=== PATIENT | female | born 1965 | race Caucasian/White ===

== ENCOUNTER 2019-07-10 11:51 | Inpatient (IN) ==
[2019-07-10] MEDS ORDERED: 0.9 % SODIUM CHLORIDE 1,000 ML IV ONE ×2 (12:17→14:23)
[2019-07-10] MEDS ORDERED: ONDANSETRON 4 MG/2 ML VIAL IV ONE (12:17)
--- NOTE | 2019-07-10 12:18 | Emergency Department Note ---
General Adult HPI - General Chief complaint: Recheck/Abnormal Lab/Rx Stated complaint: Elevated kidney functions and wbc's, n/v/d Time Seen by Provider: 07/10/19 12:03 Source: patient Mode of arrival: ambulatory Limitations: no limitations - History of Present Illness HPI Narrative: 53-year-old female patient presents to the emergency department after being referred from minor care clinic with chief complaint of a profuse nausea, vomiting, and excessive stools. During her evaluation in the minor care they did some laboratory studies did show considerable elevated BUN/creatinine 46 and 5.3 respectively. She was noted to have an elevated glucose 128. Her proteins are elevated at 9.7. She's only vomited one time today. She tells her symptoms started roughly 3 days ago. She has a history of Crohn's and currently has an ileostomy bag. She tells me she noted the bag was "filling up more frequently" at the onset of symptoms. At that time she developed the nausea and vomiting. She does have a suspicious past history of kidney problems as a child. She mentions some form of a double drainage system to the right kidney and frequent urinary stones. She has been more chilled. Her mentions that she "passed out" twice today while voiding. She denies any shortness of breath, retrosternal chest pain, palpitations, abdominal pain, or focal weakness. Other than the Crohn's diagnosis she also suffers from hyperlipidemia. She has no other past history. - Related Data Home Medications Medication Instructions Recorded Confirmed rosuvastatin 10 mg tablet 10 mg PO QDAY 07/10/19 07/10/19 vedolizumab 300 mg intravenous 300 mg IV Q8W 07/10/19 07/10/19 solution Previous Rx's Medication Instructions Recorded ondansetron 4 mg disintegrating 4 mg PO Q6H PRN #10 tab 07/10/19 tablet Allergies Allergy/AdvReac Type Severity Reaction Status Date / Time infliximab [From Remicade] Allergy med Verified 07/10/19 11:51 induced lupus Sulfa (Sulfonamide Allergy fever, Verified 07/10/19 11:51 Antibiotics) hives Review of Systems All systems ED: reviewed and negative except as stated. Past Medical History - Social History smoking status: Never smoker Physical Exam Limitations: no limitations General appearance: alert, in no apparent distress Head: atraumatic, normocephalic Eye: Present: normal appearance, PERRL, EOMI. Absent: scleral icterus, conjunctival injection ENT: Present: normal oropharynx, mucous membranes dry Neck: Present: trachea midline. Absent: lymphadenopathy Chest: Present: symmetric chest wall rise Respiratory: Present: normal lung sounds bilaterally. Absent: respiratory distress, wheezes, stridor, accessory muscle use, prolonged expiratory phase Cardiovascular: Present: regular rate, normal rhythm. Absent: systolic murmur, diastolic murmur Abdominal: Present: soft, other (ileostomy bag to the right lower quadrant draining yellow in color stool. No obvious hemorrhage noted.). Absent: distention, tenderness, guarding, rebound, rigidity, organomegaly, mass Extremities: Absent: pedal edema, pretibial edema, calf tenderness Back: Absent: CVA tenderness (R), CVA tenderness (L) Neurological: Present: alert, oriented X3 Psychiatric: Present: normal affect, normal mood Skin: Present: warm, dry Course Course Narrative: Patient was brought into the emergency department and a history and physical exam was performed. A saline lock was established and repeat laboratory studies were drawn including CBC and chem 8 panel looking at her kidney function once again. The patient was given normal saline 1000 mL's as a bolus. She has no history of previous chronic kidney disease so she will continue to get fluids until she produces urine. Patient been up several times she is restroom. Her BUN and creatinine slightly decreased to 43 and 4.8 respectively. Pro- calcitonin was less than 0.10. Lactic acid level 1.6. With her ongoing kidney dysfunction I reached out to the hospitalist (Dr. Garcia) about her need for observation admission and follow-up. At this time she likely will need further fluids and recheck her BUN and creatinine tomorrow morning. He mentioned also checking her kidneys further with some imaging studies. She remained stable throughout her entire time in the emergency department. She is going to be admitted under the hospitalist service. All further treatment decisions will be carried out by the hospitalist. Vital Signs Temperature 97.9 F 07/10/19 11:52 Pulse Rate 98 H 07/10/19 11:52 Respiratory Rate 16 07/10/19 11:52 Blood Pressure 106/72 07/10/19 11:52 Pulse Oximetry (%) 99 07/10/19 11:52 Temperature 97.9 F 07/10/19 11:52 Pulse Rate 71 07/10/19 14:59 Respiratory Rate 16 07/10/19 11:52 Blood Pressure 109/54 07/10/19 14:59 Pulse Oximetry (%) 97 07/10/19 14:59 Medical Decision Making - Lab Data Lab results reviewed: Yes I reviewed the patient's lab results. Result diagrams: 07/10/19 12:30 Lab Results 07/10/19 07/10/19 07/10/19 Range/Units 12:30 12:30 12:31 WBC 15.1 H (4.5-11.0) K/mcL RBC 5.74 H (4.00-5.20) M/mcL Hgb 15.3 H (12.0-15.0) g/dL Hct 46.4 (36.0-48.0) % POC Hct 50.0 H (36.0-48.0) % MCV 80.9 (80.0-100.0) fL MCH 26.7 (26.0-34.0) pg MCHC 33.0 (31.0-36.0) g/dL RDW 14.0 (11.5-14.5) % Plt Count 247 (140-440) K/mcL MPV 8.6 (7.4-10.4) fL Gran % 82.0 H (38.0-78.0) % Lymph % (Auto) 12.4 L (15.5-49.0) % [place] % (Auto) 5.3 (1.0-12.0) % Eos % (Auto) 0.1 (0.0-7.0) % Baso % (Auto) 0.2 (0.0-2.0) % Gran # 12.4 H (1.8-8.0) K/mcL Lymph # (Auto) 1.9 (1.5-4.8) K/mcL [place] # (Auto) 0.8 (0.1-0.9) K/mcL Eos # (Auto) 0 (0.0-0.7) K/mcL Baso # (Auto) 0 (0.0-0.3) K/mcL VBG Lactic Acid 1.6 (0.5-2.0) mmol/L POC Sodium 137 (133-145) mmol/L POC Potassium 4.1 (3.3-5.1) mmol/L POC Chloride 97 (96-108) mmol/L POC Total CO2 30 (22-30) mmol/L POC BUN 55 H (6-20) mg/dl POC Creatinine 5.4 H* (0.6-1.1) mg/dl POC Glucose 121 H (70-105) mg/dL POC WB Ioniz Calcium 1.01 L (1.16-1.32) mmol/L Lipase 34 (7-60) U/L Procalcitonin (<0.10) ng/mL 07/10/19 07/10/19 Range/Units 12:31 14:37 WBC (4.5-11.0) K/mcL RBC (4.00-5.20) M/mcL Hgb (12.0-15.0) g/dL Hct (36.0-48.0) % POC Hct 42.0 (36.0-48.0) % MCV (80.0-100.0) fL MCH (26.0-34.0) pg MCHC (31.0-36.0) g/dL RDW (11.5-14.5) % Plt Count (140-440) K/mcL MPV (7.4-10.4) fL Gran % (38.0-78.0) % Lymph % (Auto) (15.5-49.0) % [place] % (Auto) (1.0-12.0) % Eos % (Auto) (0.0-7.0) % Baso % (Auto) (0.0-2.0) % Gran # (1.8-8.0) K/mcL Lymph # (Auto) (1.5-4.8) K/mcL [place] # (Auto) (0.1-0.9) K/mcL Eos # (Auto) (0.0-0.7) K/mcL Baso # (Auto) (0.0-0.3) K/mcL VBG Lactic Acid (0.5-2.0) mmol/L POC Sodium 138 (133-145) mmol/L POC Potassium 3.9 (3.3-5.1) mmol/L POC Chloride 101 (96-108) mmol/L POC Total CO2 25 (22-30) mmol/L POC BUN 43 H (6-20) mg/dl POC Creatinine 4.8 H (0.6-1.1) mg/dl POC Glucose 92 (70-105) mg/dL POC WB Ioniz Calcium 0.98 L (1.16-1.32) mmol/L Lipase (7-60) U/L Procalcitonin < 0.10 (<0.10) ng/mL Disposition Pt seen by [facility]/PA only: Yes Clinical Impression: Acute kidney injury (nontraumatic), Ileostomy present Nausea & vomiting Qualifiers: Vomiting type: unspecified Vomiting Intractability: non-intractable Qualified Code(s): R11.2 - Nausea with vomiting, unspecified Crohns disease of small intestine Qualifiers: Digestive disease complication type: unspecified complication Qualified Code(s): K50.019 - Crohn's disease of small intestine with unspecified complications Disposition: Xfer As Inpt ([facility]) Condition: Good Instructions: Acute Kidney Injury (GEN), Crohn Disease (ED) Additional Instructions: Patient is being admitted under the care of the hospitalist (Dr. Garcia). All further treatment decisions be carried out by him. Referrals: No,PCP [Primary Care Provider] - Time of Disposition: 15:49
[2019-07-10 12:42] LABS: POC Blood Urea Nitrogen 55 mg/dl (6-20); POC CO2 30 mmol/L (22-30); POC Calcium, Ionized 1.01 mmol/L (1.16-1.32); POC Chloride 97 mmol/L (96-108); POC Creatinine 5.4 mg/dl (0.6-1.1); POC Glucose, Random 121 mg/dL (70-105); POC Potassium 4.1 mmol/L (3.3-5.1); POC Sodium 137 mmol/L (133-145)
[2019-07-10 13:16] LABS: Basophils # (Auto) 0 K/mcL (0.0-0.3); Basophils % (Auto) 0.2 % (0.0-2.0); Eosinophils # (Auto) 0 K/mcL (0.0-0.7); Eosinophils % (Auto) 0.1 % (0.0-7.0); Hematocrit 46.4 % (36.0-48.0); Hemoglobin 15.3 g/dL (12.0-15.0); Lymphocytes # (Auto) 1.9 K/mcL (1.5-4.8); Lymphocytes % (Auto) 12.4 % (15.5-49.0); Mean Cell Volume 80.9 fL (80.0-100.0); Mean Platelet Volume 8.6 fL (7.4-10.4); Monocytes # (Auto) 0.8 K/mcL (0.1-0.9); Monocytes % (Auto) 5.3 % (1.0-12.0); Platelet Count 247 K/mcL (140-440); RBC 5.74 M/mcL (4.00-5.20); WBC 15.1 K/mcL (4.5-11.0)
--- NOTE | 2019-07-10 13:46 | Nephrology Consult Note ---
History of Present Illness - Reason for Consult Patient information: Note initiated : 07/10/19 at 1:41 pm Patient: Martinez Jackson 53 y/o F admitted on for Elevated kidney functions and wbc's, n/v/d. 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 She could not have oral intake for a period of time but this improved yesterday. Her work up is significant for elevated serum creatinine and BUN. She has no history of other kidney disease. No family history of kidney disease. She received IVF in ED and feels better. She recently moved from [place] and has no PCP in this area. Review of Systems Constitutional: anorexia, weakness Nose, mouth and throat: no nasal congestion, no sore throat Cardiovascular: no chest pain, no palpatations Respiratory: no dyspnea, no wheezing Gastrointestinal: diarrhea, nausea, vomiting Genitourinary: no dysuria, no hematuria Musculoskeletal: no back pain, no joint swelling Integumentary: no rash, no wounds Neurological: no confusion, no focal weakness Psychiatric: no anxiety, no panic attacks Endocrine: no cold intolerance, no heat intolerance Hematologic/Lymphatic: no easy bleeding, no easy bruising Allergic/Immunologic: no tongue swelling, no uticaria Past History Past medical history: Crohn's disease s/p bowel resection and ostomy Recurrent nephrolithiasis Hyperlipidemia Past family history: No history of kidney disease Past social history: Recently moved to this area and has no PCP Medications and Allergies Home Medications Medication Instructions Recorded Confirmed Type ondansetron 4 mg disintegrating 4 mg PO Q6H PRN #10 tab 07/10/19 07/10/19 Rx tablet rosuvastatin 10 mg tablet 10 mg PO QDAY 07/10/19 07/10/19 History vedolizumab 300 mg intravenous 300 mg IV Q8W 07/10/19 07/10/19 History solution Allergies Allergy/AdvReac Type Severity Reaction Status Date / Time infliximab [From Remicade] Allergy med Verified 07/10/19 11:51 induced lupus Sulfa (Sulfonamide Allergy fever, Verified 07/10/19 11:51 Antibiotics) hives Exam - Vital Signs Vital signs: Temp Pulse Resp BP Pulse Ox 97.9 F 76 16 101/64 99 07/10/19 11:52 07/10/19 12:46 07/10/19 11:52 07/10/19 12:46 07/10/19 12:46 - General Appearance General appearance: appears started age EENT: mucous membranes moist Neck: supple Respiratory: clear Cardiology: no edema Gastrointestinal: no tenderness Integumentary: no rash, warm and dry Neurologic: no focal deficit, alert and oriented x3 Musculoskeletal: no deformities Psychiatric: mood/affect appropriate, cooperative Results - Lab Results 07/10/19 12:30 Lab Results 07/10/19 07/10/19 07/10/19 Range/Units 12:30 12:30 12:31 WBC 15.1 H (4.5-11.0) K/mcL RBC 5.74 H (4.00-5.20) M/mcL Hgb 15.3 H (12.0-15.0) g/dL Hct 46.4 (36.0-48.0) % POC Hct 50.0 H (36.0-48.0) % MCV 80.9 (80.0-100.0) fL MCH 26.7 (26.0-34.0) pg MCHC 33.0 (31.0-36.0) g/dL RDW 14.0 (11.5-14.5) % Plt Count 247 (140-440) K/mcL MPV 8.6 (7.4-10.4) fL Gran % 82.0 H (38.0-78.0) % Lymph % (Auto) 12.4 L (15.5-49.0) % [place] % (Auto) 5.3 (1.0-12.0) % Eos % (Auto) 0.1 (0.0-7.0) % Baso % (Auto) 0.2 (0.0-2.0) % Gran # 12.4 H (1.8-8.0) K/mcL Lymph # (Auto) 1.9 (1.5-4.8) K/mcL [place] # (Auto) 0.8 (0.1-0.9) K/mcL Eos # (Auto) 0 (0.0-0.7) K/mcL Baso # (Auto) 0 (0.0-0.3) K/mcL VBG Lactic Acid 1.6 (0.5-2.0) mmol/L POC Sodium 137 (133-145) mmol/L POC Potassium 4.1 (3.3-5.1) mmol/L POC Chloride 97 (96-108) mmol/L POC Total CO2 30 (22-30) mmol/L POC BUN 55 H (6-20) mg/dl POC Creatinine 5.4 H* (0.6-1.1) mg/dl POC Glucose 121 H (70-105) mg/dL POC WB Ioniz Calcium 1.01 L (1.16-1.32) mmol/L Lipase 34 (7-60) U/L Procalcitonin (<0.10) ng/mL 07/10/19 Range/Units 12:31 WBC (4.5-11.0) K/mcL RBC (4.00-5.20) M/mcL Hgb (12.0-15.0) g/dL Hct (36.0-48.0) % POC Hct (36.0-48.0) % MCV (80.0-100.0) fL MCH (26.0-34.0) pg MCHC (31.0-36.0) g/dL RDW (11.5-14.5) % Plt Count (140-440) K/mcL MPV (7.4-10.4) fL Gran % (38.0-78.0) % Lymph % (Auto) (15.5-49.0) % [place] % (Auto) (1.0-12.0) % Eos % (Auto) (0.0-7.0) % Baso % (Auto) (0.0-2.0) % Gran # (1.8-8.0) K/mcL Lymph # (Auto) (1.5-4.8) K/mcL [place] # (Auto) (0.1-0.9) K/mcL Eos # (Auto) (0.0-0.7) K/mcL Baso # (Auto) (0.0-0.3) K/mcL VBG Lactic Acid (0.5-2.0) mmol/L POC Sodium (133-145) mmol/L POC Potassium (3.3-5.1) mmol/L POC Chloride (96-108) mmol/L POC Total CO2 (22-30) mmol/L POC BUN (6-20) mg/dl POC Creatinine (0.6-1.1) mg/dl POC Glucose (70-105) mg/dL POC WB Ioniz Calcium (1.16-1.32) mmol/L Lipase (7-60) U/L Procalcitonin < 0.10 (<0.10) ng/mL Assessment and Plan (1) Acute kidney injury Acute kidney injury associated with decreased oral intake and increased ostomy output, likely prerenal but possible ATN. Recommendations: Continue IVF. LR recommended after 2-3 L NS. Admission for IVF if oral intake is inadequate. Follow up chemistry (inpatient or outpatient) to confirm improvement of kidney function. Further work up based on progress. Status: Acute Priority: High
[2019-07-10 14:46] LABS: POC Blood Urea Nitrogen 43 mg/dl (6-20); POC CO2 25 mmol/L (22-30); POC Calcium, Ionized 0.98 mmol/L (1.16-1.32); POC Chloride 101 mmol/L (96-108); POC Creatinine 4.8 mg/dl (0.6-1.1); POC Glucose, Random 92 mg/dL (70-105); POC Potassium 3.9 mmol/L (3.3-5.1); POC Sodium 138 mmol/L (133-145)
--- NOTE | 2019-07-10 15:45 | Internal Med History&Physical ---
Medical - H&P: [facility] Patient information: Note initiated : 07/10/19 at 3:43 pm Service Date, if different from initiated Date: [] Patient: Martinez Jackson a 53 y/o F admitted on for Elevated kidney functions and wbc's, n/v/d. Chief Complaint: [] Chief complaint: Increased ostomy output, weakness History of present illness: Ms. Jackson is a 53 year old F with a known history of Crohn's disease status post bowel resection with ostomy placement 6 years ago at [facility]. Patient moved from [place] recently to [place]. She follows up with Dr. Bar Perez at [facility] gastroenterology. She is currently on vedolizumab every 8 weeks. She has not had a flare since last 6 years. She now presents with increasing ostomy output that started on Monday. Patient denies abdominal bloating/gurgling and discomfort but no pain fever or rash. She denies bloody output. She denies associated fever chills weight loss. She denies changes in medications or sick contacts. Initial work-up in the ER was consistent with acute renal failure with a creatinine of 5.3. Hospitalist and nephrology service was consulted in light of acute renal failure. At the time of evaluation patient is resting comfortably. She denies active distress. She was able to endorse history as above. She denies NSAID intake. She has intermittent hematuria for which she underwent cystoscopy, she denies prior history of renal failure., Review of systems A 10 point review of system was performed and is negative except as above Medical - H&P: PMH Medical history: History of intermittent hematuria Crohn's disease s/p bowel resection and ostomy at [facility] Recurrent nephrolithiasis Hyperlipidemia Past family history: No history of kidney disease Daughter Crohn's disease diagnosed at age 20 Past social history: Recently moved from [place] Retired Medical - H&P: Meds Home Medications Medication Instructions Recorded Confirmed Type ondansetron 4 mg disintegrating 4 mg PO Q6H PRN #10 tab 07/10/19 07/10/19 Rx tablet rosuvastatin 10 mg tablet 10 mg PO HS 07/10/19 07/10/19 History vedolizumab 300 mg intravenous 300 mg IV Q8W 07/10/19 07/10/19 History solution Allergies Allergy/AdvReac Type Severity Reaction Status Date / Time infliximab [From Remicade] Allergy Intermediate med Verified 07/10/19 17:54 induced lupus Sulfa (Sulfonamide Allergy Mild fever, Verified 07/10/19 17:54 Antibiotics) hives Medical - H&P: Exam - Constitutional Vitals: Temp Pulse Resp BP Pulse Ox 97.9 F 71 16 109/54 97 07/10/19 11:52 07/10/19 14:59 07/10/19 11:52 07/10/19 14:59 07/10/19 14:59 General appearance: no acute distress Exam: Alert oriented Nonlabored breathing Head normocephalic Oral cavity dry No ear nose discharge Eye movement symmetrical Neck no lymphadenopathy S1-S2 regular rhythm no murmur Diminished breath sounds bases abdomen soft nontender, hyperactive bowel sounds. Ostomy bag in place Lower extremity no cyanosis clubbing no joint swelling skin no suspicious lesion Psych alert cooperative neuro nonfocal Medical - H&P: Reslt - Labs CBC & Chem 7: 07/10/19 12:30 Labs: Short CBC 07/10/19 Range/Units 12:30 WBC 15.1 H (4.5-11.0) K/mcL Hgb 15.3 H (12.0-15.0) g/dL Hct 46.4 (36.0-48.0) % Plt Count 247 (140-440) K/mcL Medical - H&P: A/P (1) Acute kidney injury Current visit: Yes Status: Acute * Acute renal failure-creatinine over 5. Likely volume depletion. Check renal ultrasound. Nephrology consult. Crystalloids. Inpatient admission. * Volume depletion secondary to increased ostomy output. Check stool studies including C. difficile/stool culture/fecal leukocyte/norovirus antigen. Continue crystalloids * History of Crohn's disease on status post bowel resection/ostomy. Stable. Managed by GI as outpatient * Full code * Prophylaxis heparin Plan * Inpatient telemetry admit * Nephrology consult * Crystalloids * Conservative management * Ostomy care
[2019-07-10] MEDS ORDERED: ONDANSETRON 4 MG/2 ML VIAL IV PRN (16:59)
[2019-07-10] MEDS ORDERED: MAGNESIUM SULFATE 2 GM/50 ML BAG IV PRN (16:59)
[2019-07-10] MEDS ORDERED: ACETAMINOPHEN 1,000 MG/100 ML BOTTLE IV PRN (16:59)
[2019-07-10] MEDS ORDERED: MELATONIN 3 MG TABLET PO PRN (16:59)
[2019-07-10] MEDS ORDERED: ACETAMINOPHEN 325 MG TABLET PO PRN (16:59)
[2019-07-10] MEDS ORDERED: POTASSIUM CHLORIDE 20 MEQ PACKET PO PRN (16:59)
[2019-07-10] MEDS: LACTATED RINGERS 1,000 ML IV SCH ×3 (18:04→23:49)
--- NOTE | 2019-07-10 18:38 | Ultrasound Report ---
CLINICAL INFORMATION: Acute renal failure COMPARISON: None. FINDINGS: Both kidneys are normal and symmetric in size, position, configuration and echotexture: The right is 13.6 x 4 cm and the left is 13 x 4.4 cm. There are no focal renal lesions. No hydronephrosis. The arterial blood flow is normal on color Doppler. Urinary bladder only 10 cc no gross abnormality IMPRESSION: Both kidneys are unremarkable Interpreted and Authenticated by: Owen Rooney 07/10/19
[2019-07-10] MEDS: CYANOCOBALAMIN (VITAMIN B-12) 500 MCG TABLET PO SCH (20:26)
[2019-07-10] MEDS: HEPARIN 5,000 UNIT/ML VIAL SQ SCH (20:34)
[2019-07-10] MEDS ORDERED: ATORVASTATIN 20 MG TABLET PO SCH (21:00)
[2019-07-10] MEDS: 0.9 % SODIUM CHLORIDE 10 ML SYRINGE IV SCH (22:00)
[2019-07-11] MEDS: 0.9 % SODIUM CHLORIDE 10 ML SYRINGE IV SCH ×3 (05:20→20:44)
[2019-07-11] MEDS: LACTATED RINGERS 1,000 ML IV SCH ×5 (05:21→20:43)
[2019-07-11 06:46] LABS: Hematocrit 35.8 % (36.0-48.0); Hemoglobin 11.7 g/dL (12.0-15.0); Mean Cell Volume 82.8 fL (80.0-100.0); Mean Corpuscular HGB Conc 32.7 g/dL (31.0-36.0); Mean Platelet Volume 8.6 fL (7.4-10.4); Platelet Count 191 K/mcL (140-440); RBC 4.32 M/mcL (4.00-5.20); WBC 10.4 K/mcL (4.5-11.0)
[2019-07-11 07:09] LABS: ALT/SGPT 9 U/l (0-40); AST/SGOT 17 U/l (0-37); Albumin 3.4 gm/dL (3.2-5.2); Albumin/Globulin Ratio 1.3 (1.0-2.3); Alkaline Phosphatase 56 U/L (39-117); Bilirubin,Direct < 0.2 mg/dL (0.0-0.3); Bilirubin,Total 0.4 mg/dL (0.0-1.0); Blood Urea Nitrogen 34 mg/dl (6-20); Calcium 8.7 mg/dl (8.6-10.4); Carbon Dioxide 26 mmol/L (22-30); Chloride 105 mmol/L (96-108); Globulin 2.6 gm/dL (2.2-3.7); Glomerular Filtration Rate 31; Glucose 87 mg/dL (70-105); Lactate Dehydrogenase 186 U/L (94-250); Phosphorous 3.9 mg/dL (2.7-4.5); Triglycerides 127 mg/dl (<150); Uric Acid 5.9 mg/dL (2.5-8.0)
[2019-07-11 08:17] LABS: Band Neutrophils % 4 % (0-10); Basophils % (Manual) 1 % (0-2); Eosinophils % (Manual) 2 % (0-7); Hypochromasia FEW (NONE SEEN); Lymphocytes % 21 % (15-49); Monocytes % (Manual) 10 % (1-12); Platelet Estimate NORMAL (NORMAL); RBC Morphology ABNORM (NORMAL); Segmented Neutrophils % 62 % (38-78)
[2019-07-11] MEDS: HEPARIN 5,000 UNIT/ML VIAL SQ SCH ×2 (08:46→20:42)
[2019-07-11] MEDS: CYANOCOBALAMIN (VITAMIN B-12) 500 MCG TABLET PO SCH ×2 (08:46→20:43)
[2019-07-11] MEDS ORDERED: THIAMINE 100 MG TABLET PO SCH (09:00)
[2019-07-11] MEDS ORDERED: FOLIC ACID 1 MG TABLET PO SCH (09:00)
[2019-07-11] MEDS ORDERED: MULTIVIT,THER IRON,CA,FA & MIN 1 TABLET PO SCH (09:00)
[2019-07-11] MEDS ORDERED: ONDANSETRON 4 MG/2 ML VIAL IV PRN (09:14)
[2019-07-11] MEDS ORDERED: MAGNESIUM SULFATE 2 GM/50 ML BAG IV PRN (09:14)
[2019-07-11] MEDS ORDERED: ACETAMINOPHEN 1,000 MG/100 ML BOTTLE IV PRN (09:14)
[2019-07-11] MEDS ORDERED: POTASSIUM CHLORIDE 20 MEQ PACKET PO PRN (09:14)
[2019-07-11] MEDS ORDERED: ACETAMINOPHEN 325 MG TABLET PO PRN (09:14)
--- NOTE | 2019-07-11 13:05 | Internal Med Progress Note ---
Medical - PN: Subj Patient information: Note initiated : 07/11/19 at 1:02 pm Service Date, if different from initiated Date: [] Patient: Martinez Jackson 53 y/o F admitted on 07/10/19 for Elevated kidney functions and wbc's, n/v/d. Chief Complaint: [] Interval history: Ms. Jackson is a 53 year old F with a known history of Crohn's disease status post bowel resection with ostomy placement 6 years ago at [facility]. Patient moved from [place] recently to [place]. She follows up with Dr. Bar Perez at [facility] gastroenterology. She is currently on vedolizumab every 8 weeks. She has not had a flare since last 6 years. She now presents with increasing ostomy output that started on Monday. Patient denies abdominal bloating/gurgling and discomfort but no pain fever or rash. She denies bloody output. She denies associated fever chills weight loss. She denies changes in medications or sick contacts. Initial work-up in the ER was consistent with acute renal failure with a creatinine of 5.3. Hospitalist and nephrology service was consulted in light of acute renal failure. At the time of evaluation patient is resting comfortably. She denies active distress. She was able to endorse history as above. She denies NSAID intake. She has intermittent hematuria for which she underwent cystoscopy, she denies prior history of renal failure., 07/11-patient doing remarkably well. White count down to 10.4 from 15, creatinine down to 1.8 from 5.3, much improved ostomy output. On IV crystalloids. Tolerating diet. Anticipate discharge in 24 hours if continues to improve clinically. [facility] Recommends outpatient infusion as scheduled in the next 24 hours once patient discharged. Continue existing treatment. - Constitutional Vitals: Vital Signs Temp Pulse Resp BP Pulse Ox 98 F 57 L 16 90/65 96 07/11/19 06:00 07/11/19 06:00 07/11/19 06:00 07/11/19 06:00 07/11/19 06:00 Period Temp Pulse Resp BP Sys/Chang Pulse Ox Last 24 Hr 97.1 F-99.4 F 57-73 14-16 89-109/54-77 92-99 Intake and Output 07/10/19 07/11/19 07/11/19 21:59 05:59 13:59 Intake Total 4976 680 1726 Output Total 200 1350 400 Balance 1040 -487 600 Weight 158 lb Intake & Output: Intake & Output 07/10/19 07/11/19 07/11/19 21:59 05:59 13:59 Intake Total 5718 677 3070 Output Total 200 1350 400 Balance 1040 -487 600 Weight 158 lb Intake: IV 0748 650 2975 Sodium Chloride 0.9% 1,000 ml @ 1000 Wide Open IV BOLUS ONE Rx#: [id number] Lactated Ringers 1,000 ml @ 773 722 8802 mls/hr IV .Q6H40M FRANCIA Rx#: [id number] Oral 240 Output: Void Amount 150 1050 400 Stool 50 300 Other: Meal Dinner Percent of Meal Consumed 100% Feeding Ability Independent Urine Appearance Clear Clear Clear Urine Color Pale Bright Yellow Bright Yellow Urine Odor Normal Normal Stool Color Brown Brown Green Stool Consistency Liquid Normal for Patient Watery Liquid General appearance: no acute distress Exam: Alert oriented Nonlabored breathing Nondistended abdomen Ostomy output improving No anxiety Medical - PN: Obj Da - Labs CBC & Chem 7: 07/11/19 03:52 07/11/19 03:52 Labs: Abnormal Lab Results 07/11/19 07/11/19 07/10/19 03:52 03:52 14:37 WBC RBC Hgb 11.7 L Hct 35.8 L POC Hct Gran % Lymph % (Auto) Gran # RBC Morphology Abnorm A Hypochromasia Few A POC BUN 43 H BUN 34 H Creatinine 1.8 H POC Creatinine 4.8 H POC Glucose POC WB Ioniz Calcium 0.98 L 07/10/19 07/10/19 12:30 12:30 WBC 15.1 H RBC 5.74 H Hgb 15.3 H Hct POC Hct 50.0 H Gran % 82.0 H Lymph % (Auto) 12.4 L Gran # 12.4 H RBC Morphology Hypochromasia POC BUN 55 H BUN Creatinine POC Creatinine 5.4 H* POC Glucose 121 H POC WB Ioniz Calcium 1.01 L Meds: Medications Acetaminophen (Tylenol) 650 mg PO Q4-6HP PRN PRN Reason: PAIN/FEVER > 101 Atorvastatin Calcium (Lipitor) 20 mg PO HS FRANCIA Cyanocobalamin (Vitamin B-12) 1,000 mcg PO BID [facility] Stop: 07/15/19 09:01 Folic Acid (Folic Acid) 1 mg PO DAILY [facility] Heparin Sodium (Porcine) (Heparin) 5,000 unit SQ Q12 [facility] Lactated Ringer's (Lactated Ringers) 1,000 mls @ 150 mls/hr IV .Q6H40M [facility] Stop: 07/12/19 02:18 Last Admin: 07/11/19 09:20 Dose: Not Given Documented by: Magnesium Sulfate (Magnesium Sulfate) 2 gm in 50 mls @ 50 mls/hr IV UD PRN PRN Reason: MG = or < 1.7 Acetaminophen (Ofirmev) 1,000 mg in 100 mls @ 200 mls/hr IV Q6HP PRN PRN Reason: PAIN/FEVER > 101 Iron Carb/Multivit/Reydon/Folic Acid (Multivitamin W/Minerals) 1 tab PO DAILY [facility] Melatonin (Melatonin 3mg Tablet) 3 mg PO HSP PRN PRN Reason: Insomnia Ondansetron HCl (Zofran) 4 mg IV Q4-6HP PRN PRN Reason: Nausea And Vomiting Potassium Chloride (Klor-Con) 40 meq PO DAILYP PRN PRN Reason: K+ < 3.5 Sodium Chloride (Saline Flush) 10 ml IV Q8 [facility] Thiamine HCl (Vitamin B1) 100 mg PO DAILY [facility] Medical - PN: A/P - Time Spent With Patient Total time spent is greater than 50% in coordination of care (as documented) at patient's floor/unit and/or counseling patient: 25 - 35 minutes (1) Acute kidney injury Status: Acute Assessment and plan: * Acute renal failure-creatinine creatinine improved from 5.3-1.8. Continue crystalloids and supportive treatment. * Volume depletion secondary to increased ostomy output. Clinical improvement noted with aggressive crystalloids. * Increased ostomy output-negative C. difficile, fecal leuks. Likely acute viral gastritis. Clinically improving with crystalloids. * History of Crohn's disease on status post bowel resection/ostomy. Stable. Managed by GI as outpatient. Patient will undergo regular infusion of vedolizumab in the next 24 hours at [facility] * Full code * Prophylaxis heparin Plan * Continue crystalloids * Monitor renal function * Advance diet as tolerated * Ostomy care * Anticipate discharge in 24 hours Current Visit: Yes Medical - PN: Qual - VTE Deep Vein Thrombosis/Pulmonary Embolism Present on Admission: No
--- NOTE | 2019-07-11 16:58 | Nephrology Progress Note ---
Subjective Patient information: Note initiated : 07/11/19 at 4:56 pm Service Date, if different from initiated Date: [] Patient: Martinez Jackson 53 y/o F admitted on 07/10/19 for Elevated kidney functions and wbc's, n/v/d. Chief Complaint: [] Principal diagnosis: zandra Interval history: Tolerating p.o. both food and fluids. No more nausea. Good urine output. at the bedside present throughout the visit. Pertinent ROS: Nausea and vomiting resolved Ostomy output decreasing Good urine output Objective - Vital Signs Vital signs: Vital Signs Temp Pulse Pulse Resp BP BP Pulse Ox 07/11/19 12:00 36.7 C 68 20 114/71 97 07/11/19 08:00 36.6 C 81 18 101/62 97 07/11/19 06:00 36.6 C 57 L 16 90/65 96 07/11/19 04:20 36.4 C 07/11/19 02:00 57 L 14 93/58 95 07/10/19 23:40 36.2 C 62 14 89/59 92 07/10/19 20:04 37.4 C H 71 16 109/64 92 07/10/19 17:22 37.0 C 71 14 106/72 99 07/10/19 17:11 37.0 C 73 14 102/77 99 Intake and Output 07/11/19 07/11/19 07/11/19 05:59 13:59 21:59 Intake Total 863 2000 Output Total 1350 1300 400 Balance -487 700 -400 Intake: IV 863 2000 Lactated Ringers 1,000 ml @ 351 610 1310 mls/hr IV .Q6H40M ON LICENSE OF [facility] Rx#: [id number] Output: Void Amount 1050 1300 400 Stool 300 Other: Urine Appearance Clear Clear Clear Urine Color Bright Yellow Bright Yellow Bright Yellow Urine Odor Normal Normal Normal Stool Color Brown Brown Green Green Stool Consistency Normal for Patient Liquid Liquid Weight 71.668 kg Patient Weight 07/12/19 05:59 Weight 71.668 kg Intake & Output: Intake & Output 07/11/19 07/11/19 07/11/19 05:59 13:59 21:59 Intake Total 863 2000 Output Total 1350 1300 400 Balance -487 700 -400 Weight 71.668 kg Intake: IV 863 2000 Lactated Ringers 1,000 ml @ 652 895 1061 mls/hr IV .Q6H40M ON LICENSE OF [facility] Rx#: [id number] Output: Void Amount 1050 1300 400 Stool 300 Other: Urine Appearance Clear Clear Clear Urine Color Bright Yellow Bright Yellow Bright Yellow Urine Odor Normal Normal Normal Stool Color Brown Brown Green Green Stool Consistency Normal for Patient Liquid Liquid - General Appearance General appearance: well-developed, well-nourished (Normocephalic atraumatic, nonlabored respirations, clear speech) - Lab 07/11/19 03:52 07/11/19 03:52 Most recent lab results Calcium 8.7 mg/dl (8.6-10.4) 07/11/19 03:52 Phosphorus 3.9 mg/dL (2.7-4.5) 07/11/19 03:52 Magnesium 2.1 mg/dL (1.6-2.5) 07/11/19 03:52 Assessment and Plan (1) ZANDRA (acute kidney injury) Status: Acute - Narrative A/P Narrative: Prerenal etiology in the setting of low p.o. intake and high ostomy output. Improved significantly with IV fluids. The patient can tolerate p.o. both food and fluids. Nausea and vomiting resolved. Counseled on NSAID avoidance, keep well-hydrated. Repeat renal function panel 1 or 2 weeks after discharge if serum creatinine does not return to baseline prior to discharge. We are signing off. Please call with questions or concerns
[2019-07-11] MEDS ORDERED: ATORVASTATIN 20 MG TABLET PO SCH (21:00)
[2019-07-11] MEDS ORDERED: MELATONIN 3 MG TABLET PO PRN (21:00)
[2019-07-12 05:22] LABS: Hematocrit 33.9 % (36.0-48.0); Hemoglobin 11.2 g/dL (12.0-15.0); Mean Cell Volume 82.8 fL (80.0-100.0); Mean Corpuscular HGB Conc 33.1 g/dL (31.0-36.0); Mean Platelet Volume 8.5 fL (7.4-10.4); Platelet Count 170 K/mcL (140-440); Red Cell Distribution Width 13.7 % (11.5-14.5); WBC 7.9 K/mcL (4.5-11.0)
[2019-07-12 05:39] LABS: ALT/SGPT 12 U/l (0-40); AST/SGOT 15 U/l (0-37); Albumin 3.3 gm/dL (3.2-5.2); Albumin/Globulin Ratio 1.3 (1.0-2.3); Alkaline Phosphatase 49 U/L (39-117); Bilirubin,Direct < 0.2 mg/dL (0.0-0.3); Bilirubin,Total 0.3 mg/dL (0.0-1.0); Blood Urea Nitrogen 14 mg/dl (6-20); Calcium 8.7 mg/dl (8.6-10.4); Carbon Dioxide 29 mmol/L (22-30); Chloride 105 mmol/L (96-108); Globulin 2.6 gm/dL (2.2-3.7); Glomerular Filtration Rate 63; Glucose 87 mg/dL (70-105); Lactate Dehydrogenase 157 U/L (94-250); Phosphorous 2.4 mg/dL (2.7-4.5); Triglycerides 111 mg/dl (<150); Uric Acid 3.2 mg/dL (2.5-8.0)
[2019-07-12 06:20] LABS: Lymphocytes % 37 % (15-49); Monocytes % (Manual) 6 % (1-12); Platelet Estimate NORMAL (NORMAL); RBC Morphology NORMAL (NORMAL); Segmented Neutrophils % 57 % (38-78)
[2019-07-12] MEDS: 0.9 % SODIUM CHLORIDE 10 ML SYRINGE IV SCH (07:49)
--- NOTE | 2019-07-12 08:38 | Discharge Summary ---
Medical - DS: Prov Patient information: Note initiated : 07/12/19 at 8:35 am Service Date, if different from initiated Date: [] Patient: Martinez Jackson 53 y/o F admitted on 07/10/19 for Elevated kidney functions and wbc's, n/v/d. Chief Complaint: [] Date of admission: 07/10/19 17:06 Discharge date: 07/12/19 Primary care physician: PCP No Consults: 07/10/19 Consult to Physician [CONS] Stat Comment: Consulting Provider: Robin Rodriguez Reason For Exam: Physician to Consult 07/10/19 13:28 Consult to Physician [CONS] Stat Comment: Consulting Provider: Solitario Pruitt Reason For Exam: Physician to Consult Medical - DS: Meds - Discharge Medications Active and Home Medications: Home Medications ondansetron 4 mg disintegrating tablet 4 mg PO Q6H PRN #10 tab 07/10/19 [Rx Confirmed 07/10/19 Last Taken Unknown] rosuvastatin 10 mg tablet 10 mg PO HS 07/10/19 [History Confirmed 07/10/19 Last Taken Unknown] vedolizumab 300 mg intravenous solution 300 mg IV Q8W 07/10/19 [History Confirmed 07/10/19 Last Taken Unknown] Medical - DS: Hosp Hospital Course: Discharge diagnosis * Acute renal failure-creatinine creatinine improved from 5.3-1.8. Continue crystalloids and supportive treatment. * Volume depletion secondary to increased ostomy output. Clinical improvement noted with aggressive crystalloids. * Increased ostomy output-negative C. difficile, fecal leuks. Likely acute viral gastritis. Clinically improving with crystalloids. * History of Crohn's disease on status post bowel resection/ostomy. Stable. Managed by GI as outpatient. Patient will undergo regular infusion of vedolizumab in the next 24 hours at [facility] Hospital course Ms. Jackson is a 53 year old F with a known history of Crohn's disease status post bowel resection with ostomy placement 6 years ago at [facility]. Patient moved from [place] recently to [place]. She follows up with Dr. Bar Perez at [facility] gastroenterology. She is currently on vedolizumab every 8 weeks. She has not had a flare since last 6 years. She now presents with increasing ostomy output that started on Monday. Patient denies abdominal bloating/gurgling and discomfort but no pain fever or rash. She denies bloody output. She denies associated fever chills weight loss. She denies changes in medications or sick contacts. Initial work-up in the ER was consistent with acute renal failure with a creatinine of 5.3. Hospitalist and nephrology service was consulted in light of acute renal failure. At the time of evaluation patient is resting comfortably. She denies active distress. She was able to endorse history as above. She denies NSAID intake. She has intermittent hematuria for which she underwent cystoscopy, she denies prior history of renal failure., 07/11-patient doing remarkably well. White count down to 10.4 from 15, creatinine down to 1.8 from 5.3, much improved ostomy output. On IV crystall oids. Tolerating diet. Anticipate discharge in 24 hours if continues to improve clinically. Case discussed with Dr. Nica HAMM at [facility] gastroenterology. Recommends outpatient infusion as scheduled in the next 24 hours once patient discharged. Continue existing treatment. 07/12- doing well. DC home. Cr 1. Ostomy Output minimal and formed. OP infusion at [facility] dr gabino HAMM today Discharge diagnosis: . - Time Spent with Patient Total time spent providing and/or coordinating discharge services: Greater than 30 minutes Medical - DS: Exam - Constitutional Vitals: Vital Signs Temp Pulse Pulse Resp BP Pulse Ox 07/12/19 07:04 97.7 F 54 L 16 138/72 94 07/12/19 03:35 97.9 F 52 L 16 111/67 95 07/11/19 23:55 97.8 F 46 L 16 113/69 94 07/11/19 19:05 98.6 F 56 L 16 114/70 96 07/11/19 16:00 98.7 F 16 118/70 98 07/11/19 12:00 98.0 F 68 20 114/71 97 Intake and Output 07/11/19 07/12/19 07/12/19 21:59 05:59 13:59 Intake Total 1640 100 Output Total 400 Balance 1240 100 Intake: IV 1000 Lactated Ringers 1,000 ml @ 150 1000 mls/hr IV .Q6H40M [facility] Rx#: [id number] Oral 240 100 GI Tube Flush 400 Output: Void Amount 400 Other: Meal Dinner Percent of Meal Consumed 100% Feeding Ability Independent Urine Appearance Clear Urine Color Bright Yellow Urine Odor Normal Stool Size Small Stool Color Brown Stool Consistency Loose # Voids 1 1 1 Weight 160 lb Medical - DS: Data Labs on day of discharge: Labs from last 24 hours 07/12/19 07/12/19 04:16 04:16 WBC 7.9 RBC 4.10 Hgb 11.2 L Hct 33.9 L MCV 82.8 MCH 27.4 MCHC 33.1 RDW 13.7 Plt Count 170 MPV 8.5 Total Counted 100 Seg Neutrophils % 57 Band Neutrophils % Not Reportable Lymphocytes % 37 Monocytes % (Manual) 6 Platelet Estimate Normal RBC Morphology Normal Sodium 140 Potassium 3.9 Chloride 105 Carbon Dioxide 29 Anion Gap 6.0 L BUN 14 Creatinine 1.0 GFR Calculation 63 Glucose 87 Uric Acid 3.2 Calcium 8.7 Phosphorus 2.4 L Magnesium 1.8 Total Bilirubin 0.3 Direct Bilirubin < 0.2 GGT 12 AST 15 ALT 12 Alkaline Phosphatase 49 Lactate Dehydrogenase 157 Total Protein 5.9 Albumin 3.3 Globulin 2.6 Albumin/Globulin Ratio 1.3 Triglycerides 111 Preliminary micro results at discharge 07/10/19 18:07 Stool Culture - Preliminary Stool Medical - DS: A/P - Patient/Caregiver Discharge Instructions Activity: increase activity as tolerated Diet: Regular Diet Additional Instructions: F/u PCP in 5 days - Problem Maintenance (1) Acute kidney injury Status: Acute - Follow up Plan Follow up with: No,PCP [Primary Care Provider] - Disposition: Home, Self-Care Prognosis: Good Rehab Potential: Fair I certify that the patient requires SNF services: No Overall status at discharge: patient is progressing back to baseline Medical - DS: Qual - VTE Deep Vein Thrombosis/Pulmonary Embolism Present on Admission: No
[2019-07-12] MEDS ORDERED: FOLIC ACID 1 MG TABLET PO SCH (09:00)
[2019-07-12] MEDS ORDERED: THIAMINE 100 MG TABLET PO SCH (09:00)
[2019-07-12] MEDS ORDERED: MULTIVIT,THER IRON,CA,FA & MIN 1 TABLET PO SCH (09:00)
[2019-07-12] MEDS: CYANOCOBALAMIN (VITAMIN B-12) 500 MCG TABLET PO SCH (09:35)
[2019-07-12] MEDS: HEPARIN 5,000 UNIT/ML VIAL SQ SCH (09:36)
== END 2019-07-12 09:50 | disposition home or self-care (01) | DRG 683 ==
LOC: ED 11:51 → SUATTDRO 17:06 → ICU 17:06 → MEDSUR 07-11 14:15
PROVIDERS: ADMIT Internal Medicine; ATTEND Internal Medicine Nephrology